=== PATIENT | female | born 1970 | race Caucasian/White ===

== ENCOUNTER → 2017-08-30 | Outpatient (CLI) | payer OTHER, MEDICAID ==
[2016-11-24 02:12] VITALS: BP 129/77
--- NOTE | 2017-08-30 19:40 | RAD ---
Examination: Right elbow, four views History: Right elbow pain Findings: There is no evidence for fracture, dislocation or synovial distension. Joint spaces are hernandez ntained. Impression: Within normal limits. Reported By:
--- NOTE | 2017-08-30 19:41 | RAD ---
Examination: Right forearm, three views History: Pain Findings: Normal appearance of radius and ulna. There is no evidence for trauma, bone destruction or contour abnormality. Impression: Within normal limits. Reported By:
== END ==
LOC: RAD 18:54
PROVIDERS: ATTEND Nurse Practitioner Family
DX: M25.521 Pain in right elbow (principal); M79.631 Pain in right forearm
CPT/HCPCS: 73070; 73090

== ENCOUNTER 2017-09-29 16:17 | Emergency (ER) | payer OTHER, MEDICAID ==
[2017-09-29 16:27] VITALS: BP 128/75; BMI 22.8
--- NOTE | 2017-09-29 16:47 | DR.GENAD ---
HPI - PCP Primary Care Physician: Karen Ramirez - HPI Comment HPI Comment: PATIENT HAVE CHEST DISCOMFORT FROM PERSISTENT COUGING. - Complaint/Symptoms Chief Complaint Doctors Comments: COUGH, CONGESTION TIMES 2 WEEKS. INJURY LEFT RING FINGER THAT IS GETTING WORSE. Chief Complaint:: "possible broke finger on right hand, I might also have bronchitis" - Nurses notes reviewed Nurses Notes Review: Yes - Source History Provided: Patient - Mode of Arrival Mode of Arrival: Ambulatory - Timing Onset of Chief Complaint: 09/22/17 Came on: Suddenly - Duration Duration: Constant Duration: Days - Severity Severity: Moderate PMH - PMH Past Medical History: No Past Medical History: Anxiety, Arthritis, Asthma, COPD, Depression, Migraines, Headaches Past Surgical History: Yes Surgical History: , Hysterectomy Past Surgical History Comment: both feet - Family History History of Family Medical Conditions: Yes Family Medical History: Diabetes Mellitus, Cancer - Social History Does patient currently use any type of tobacco product: No Have you used tobacco products in the last 12 months: No Type of Tobacco Use: None Does any household member use tobacco: No Alcohol Use: None Do you use any recreational Drugs:: No Lives With: Family Lives Where: Home - infectious screening In the last 2 months have you had wt loss of >10#?: NO Have you had fever, night sweats or hemotysis?: No Have you traveled outside the country in the last 6 months?: No Isolation: Standard ROS - Review of Systems Constitutional: No Symptoms Reported Eyes: No Symptoms Reported ENTM: Nose Discharge, Nose Congestion, Throat Pain. negative: Ear Pain Respiratoy: Productive Cough. negative: Short of Breath, Wheezing, Hemoptysis Cardiovascular: Chest Pain Gastrointestinal/Abdominal: No Symptoms Reported Genitourinary: No Symptoms Reported Neurological: No Symptoms Reported Musculoskeletal: Left, Hand Integumentary: No Symptoms Reported, Change in Color, Bruises Hematologic/Lymphatic: No Symptoms Reported All Other Systems: Reviewed and Negative PE - Vital Signs Vitals: Temperature 98 F Pulse Rate 75 Respiratory Rate 18 Blood Pressure [Right Arm] 142/68 Blood Pressure 128/75 O2 Sat by Pulse Oximetry 100 - General Limitations: No Limitations General Appearance: Alert - Head Head Exam: Normal Inspection - Eyes Eye exam: Normal Appearance - ENT ENT Exam: Normal External Ear Exam TM/Canal Exam: Bilateral Normal Nose Exam: Normal Nose Exam Mouth Exam: Normal Inspection Throat Exam: Normal Inspection - Neck Neck Exam: Normal Inspection - Chest Chest Inspection: Symmetric Chest Wall Rise - Respiratory Respiratory Exam: Normal Lung Sounds Bilat Respiratory Exam: Bilateral Rhonchi, Upper Rhonchi, Lower Rhonchi - Cardiovascular Cardiovascular Exam: Regular Rate, Normal Rhythm, Normal Heart Sounds - Abdominal Exam Abdominal Exam: Normal Bowel Sounds, Soft. negative: Tenderness - Extremities Extremities Exam: Tenderness (LEFT RING FINGER BRUISED, TENDER AND SWOLLEN.) - Back Back Exam: Normal Inspection - Neurologic Neurological Exam: Alert, Oriented X3 - Psychiatric Psychiatric Exam: Normal Affect, Normal Mood - Skin Skin Exam: Normal Color MDM - Additional Information Additional Information Obtained From: Family - Differential Diagnosis Differential Diagnosis: BRONCHITIS, PNEUMONIA, RIGHT FINGER FRACTURE OR CONTUSION Course - Treatment Treatment: SEE ORDERS. - Education/Counseling Education/Counseling: Patient, Family, Education Educated On: Treatment, Diagnosis, Needs for Follow Up ROR - XRAY XRAY Interpreted by: Radiologist XRAY Findings: REPORT DISCUSS WITH PATIENT. - Diagnosis Discharge Problem: Bronchitis Fracture of finger of right hand Qualifiers: Encounter type: initial encounter Finger: ring finger Fracture type: closed Phalanx: middle Fracture alignment: nondisplaced Qualified Code(s): S62.654A - Nondisplaced fracture of medial phalanx of right ring finger, initial encounter for closed fracture - Discharge Plan Disposition: 01 HOME, SELF-CARE Condition: Stable Prescriptions: Amoxicillin [Amoxil 875 mg] 875 mg PO Q12H #20 tab Benzonatate [TESSALON PERLES *] 200 mg PO TID PRN #30 cap PRN Reason: Cough Tramadol HCl 50 mg PO Q8H #15 tablet - Follow ups/Referrals Follow ups/Referrals: KAREN RAMIREZ [Primary Care Provider] - 3 days - Instructions Instructions: Acute Bronchitis, [id number] Additional Instructions: RETURN TO ED IF WORSE. YOU ALSO HAVE RIGHT RING FINGER FRACTURE.
--- NOTE | 2017-09-29 17:38 | RAD ---
HISTORY: Fever and cough. Study: PA and lateral chest. Comparison: Chest x-ray dated December 19, 2012. Findings: Study is limited secondary to the lung apices off the field of view. The trachea is midline. The cardiac silhouette is unremarkable. Chronic emphysematous changes. No o bvious focal consolidation, pleural effusion, or pneumothorax.. The bony thorax is unremarkable. IMPRESSION: No acute cardiopulmonary disease. Reported By:
--- NOTE | 2017-09-29 17:40 | RAD ---
History: Injury to 4th digit. Pain and edema. Study: Right hand three views. Comparison: None. Findings: There appears to be a subtle cortical step-off involving the middle phalanx of the right 4t h digit. This may represent a subtle nondisplaced fracture. There is no evidence of dislocation. No d isplaced fractures are identified. IMPRESSION: Possible subtle nondisplaced fracture involving the middle phalanx of the right 4th digit . Reported By:
[2017-09-29] MEDS ORDERED: AMOXIL CAP 500 MG PO ONE ×3 (18:15→18:20)
[2017-09-29] MEDS ORDERED: ULTRAM ONE (18:18)
[2017-09-29] MEDS: ULTRAM PO ONE ×2 (18:24→18:30)
== END 2017-09-29 18:39 | disposition home or self-care (01) ==
LOC: ER 16:28
DX: J40 Bronchitis, not specified as acute or chronic (principal); S62.654A Nondisplaced fracture of middle phalanx of right ring finger, initial encounter for closed fracture; X58.XXXA Exposure to other specified factors, initial encounter; Y92.9 Unspecified place or not applicable
CPT/HCPCS: 71020; 73130; 99282; 99283

== ENCOUNTER → 2017-11-20 | Outpatient (CLI) | payer OTHER, MEDICAID ==
--- NOTE | 2017-11-20 10:18 | RAD ---
Examination: Right hand, three views History: Chronic pain Findings: There is a linear contour deformity involving the middle phalanx of the ring finger. There is slight contour deformity suggesting fracture, possibly subacute. Joint spaces are preserved. No dayne ne destruction is identified. Impression: Findings described suggest healed/healing fracture, middle phalanx right ring finger. Cor relate with history and physical findings. Reported By:
== END ==
LOC: RAD 09:36
PROVIDERS: ATTEND Specialist
DX: M79.641 Pain in right hand (principal)
CPT/HCPCS: 73130